=== PATIENT | male | born 1970 | race Caucasian/White ===

== ENCOUNTER → 2018-09-21 | Outpatient (CLI) | payer OTHER ==
--- NOTE | 2018-09-23 20:50 | SLEEP ---
[address] [address] SLEEP STUDY REPORT Name: JAZMYNE ESTRADA Room: [facility]#: [id number] Admission: 09/21/18 Attend Phys: Parveen Watson MD Discharge: Date of : 72 Report #: [id number] THIS REPORT FOR: //name// CC: Dr. Parveen Watson This study has been reviewed in its entirety by a board certified sleep specialist DATE OF SERVICE: 09/21/2018 ATTENDING PHYSICIAN: Dr. Parveen Watson. The patient is 47 years old who weighs 200 pounds with a BMI of 29.5. The patient's [place] score was 11. The patient underwent sleep study performed at [facility]. During the night study, the patient spent 454 minutes in bed and slept for 228 minutes with a low sleep efficiency of 50%. Sleep latency was 56 minutes with a REM latency of 364 minutes. Overall, sleep architecture showed increased stage 1 and stage 2 sleep, increased N3 sleep and reduced REM sleep. During the initial diagnostic portion of the study, patient slept for 76 minutes. During that time, patient had no apneas, but 20 hypopneas. The patient's apnea-hypopnea index was 16 per hour. Supine index of 20 per hour. REM sleep was not seen during the diagnostic portion. EKG monitoring revealed an average heart rate of 76 beats per minute. No sustained arrhythmias observed. No clinically significant PLMS observed. Nocturnal oximetry study revealed an average oxygen saturation of 94% with the lowest of 81%. Only 1 minute was spent in oxygen saturation of less than 89%. The patient met the criteria for CPAP initiation. It was started at 7 cm water and titrated up to 10 cm of water. However, due to patient intolerance of CPAP and development of some central apneas, the patient was switched to BiPAP. The pressure was increased to eliminate respiratory events as well as snoring. At the final BiPAP pressure of 21/17, the patient slept for 22 minutes. The patient had supine sleep, but no REM sleep. The patient's AHI was reduced to 0 per hour and oxygen saturation remained above 95%. This is a final therapeutic pressure. IMPRESSION: [place] [address] SLEEP STUDY REPORT Name: SEANJAZMYNE A Room: [facility]#: [id number] Admission: 09/21/18 Attend Phys: Parveen Watson MD Discharge: Date of : 72 Report #: [id number] 1. Moderate sleep apnea-hypopnea syndrome at an AHI of 16 per hour with a supine AHI of 20 per hour. 2. No clinically significant nocturnal hypoxia. 3. No clinically significant PLMS. RECOMMENDATIONS: 1. BiPAP at a pressure of 21/17 completely eliminated the patient's sleep apnea and should be used on a nightly basis. 2. Follow up in 4-6 weeks to assess compliance and to document improvement with CPAP. 3. Weight loss is advised. 4. Avoid [employer]OT[employer] depressants. 5. Cautioned regarding driving until symptoms of sleep apnea resolve with the use of BiPAP. <ELECTRONICALLY SIGNED> By: Dennis Guan MD 09/23/182049 1622 1922Ajanel Guan MD /nt
== END ==
LOC: M.SLEEPLAB 19:43
DX: G47.33 Obstructive sleep apnea (adult) (pediatric) (principal); G47.00 Insomnia, unspecified; F51.01 Primary insomnia